=== PATIENT | male | born 1990 ===

== ENCOUNTER 2018-06-03 17:24 | Emergency (ER) | payer OTHER ==
[2018-06-03 17:57] VITALS: BP 136/82
--- NOTE | 2018-06-03 18:13 | ED PDOC ---
HPI: Male Pain Time Seen by Provider: 06/03/18 18:01 Chief Complaint (Nursing): Male Genitourinary Chief Complaint (Provider): Male Genitourinary History Per: Patient History/Exam Limitations: no limitations Associated Symptoms: Urinary Symptoms (dysuria). denies: Nausea, Vomiting, Diarrhea Additional Complaint(s): 27 y/o male with no significant past medical history presents to the ED co mplaining of penile pain, onset x5 days ago. Patient states that the pain started spontaneously and he believes he has a cut on his penis. Patient states that he later had intercourse which made the pain hurt even more. Over the course of the next few days patient continued to experience pain ultimately prompting ED visit today. Patient reports a burning sensation when he urinates. He also notes recent sick contact with his friend (with a cough) and subsequently reports a subjective fever and sore throat. He denies nausea, vomiting, diarrhea, abdominal pain, testicular pain, active bleeding, or increase in urinary frequency compared to baseline. Past Medical History Reviewed: Historical Data, Nursing Documentation, Vital Signs Vital Signs: Last Vital Signs Temp 99.7 F H 06/03/18 17:54 Pulse 101 H 06/03/18 17:54 Resp 18 06/03/18 17:54 BP 136/82 06/03/18 17:54 Pulse Ox 100 06/03/18 17:54 - Medical History PMH: No Chronic Diseases - Surgical History Surgical History: No Surg Hx - Family History Family History: States: Unknown Family Hx - Living Arrangements Living Arrangements: With Family - Home Medications Home Medications: Ambulatory Orders Medication Instructions Recorded Ibuprofen [Motrin] 600 mg PO TID 7 Days tab 06/03/18 - Allergies Allergies/Adverse Reactions: Allergies Allergy/AdvReac Type Severity Reaction Status Date / Time No Known Allergies Allergy Verified 06/03/18 17:54 Review of Systems ROS Statement: Except As Marked, All Systems Reviewed And Found Negative Constitutional: Positive for: Fever (subjective) ENT: Positive for: Throat Pain (sore throat; able to swallow) Gastrointestinal: Negative for: Nausea, Vomiting, Abdominal Pain, Diarrhea Genitourinary Male: Positive for: Dysuria, Penile Pain. Negative for: Incontinence, Penile Discharge, Scrotal Pain Physical Exam - Reviewed Nursing Documentation Reviewed: Yes Vital Signs Reviewed: Yes - Physical Exam Appears: Positive for: Well, Non-toxic, No Acute Distress Head Exam: Positive for: ATRAUMATIC, NORMOCEPHALIC Skin: Positive for: Normal Color, Warm, DRY Eye Exam: Positive for: EOMI, Normal appearance, PERRL ENT: Positive for: Normal ENT Inspection. Negative for: Nasal Congestion, Pharyngeal Erythema Neck: Positive for: Normal, Painless ROM Cardiovascular/Chest: Positive for: Regular Rate, Rhythm. Negative for: Murmur Respiratory: Positive for: Normal Breath Sounds. Negative for: Respiratory Distress Gastrointestinal/Abdominal: Positive for: Normal Exam, Soft. Negative for: Tenderness Male Genital Exam: Positive for: other (mild tenderness to left shaft; no ecchymosis, induration, abrasions, or lacerations noted.). Negative for: erythema, scrotum tenderness (R), scrotum tenderness (L), testicular tenderness (R), testicular tenderness (L), urethral discharge Back: Positive for: Normal Inspection. Negative for: L CVA Tenderness, R CVA Tenderness Extremity: Positive for: Normal ROM. Negative for: Pedal Edema, Deformity Neurologic/Psych: Positive for: Alert, Oriented. Negative for: Motor/Sensory Deficits - ECG O2 Sat by Pulse Oximetry: 100 (RA) Pulse Ox Interpretation: Normal - Progress ED Course And Treament: 1845: Likely irritated penis from possible sex. Pt. to avoid sex for 2 weeks. Fu with pcp. States sex was only with 1 partner and no chance of stds. AAOx3. Medical Decision Making Medical Decision Making: Time: 18:11 Initial Impression: penile irritation and dysuria Initial Plan: * Urine Dip * 600 mg Motrin PO Scribe Attestation: Documented by Kevin Wellington acting as a scribe for Johan Rodriguez MD. Provider Scribe Attestation: All medical record entries made by the Scribe were at my direction and personally dictated by me. I have reviewed the chart and agree that the record accurately reflects my personal performance of the history, physical exam, medical decision making, and the department course for this patient. I have also personally directed, reviewed, and agree with the discharge instructions and disposition. Disposition - Clinical Impression Clinical Impression: URI (upper respiratory infection), Penile abrasion - Patient ED Disposition Is Patient to be Admitted: No Counseled Patient/Family Regarding: Studies Performed, Diagnosis, Need For Followup, Rx Given - Disposition Referrals: [facility] [Outside] - 06/05/18 Disposition: Routine/Home Disposition Time: 18:45 Condition: STABLE Additional Instructions: Return if not better in 3 days. Prescriptions: Ibuprofen [Motrin] 600 mg PO TID 7 Days tab Instructions: Viral Upper Respiratory Infection, Adult (DC), Skin Abrasions Forms: [facility] (K[place]akh)
[2018-06-03 19:12] VITALS: PULSE 99; RESP 17; TEMP 99.6; O2SAT 97
== END 2018-06-03 19:00 | disposition home or self-care (01) ==
LOC: H.ER 17:24
DX: R06.9 Unspecified abnormalities of breathing (principal); S30.812A Abrasion of penis, initial encounter